=== PATIENT | male | born 1990 | race Caucasian/White ===

== ENCOUNTER 2016-11-09 19:20 | Emergency (ER) | payer OTHER ==
[~2016-11-09] VITALS: Ht 177.8 cm; Wt 90.9 kg
[2016-11-09 19:23] VITALS: BP 109/71; PULSE 72; RESP 16; O2SAT 99
[2016-11-09 22:29] LABS: BASOPHILS % (AUTO) 0.1 % (0-3); EOSINOPHILS % (AUTO) 2.1 % (0-5); MONOCYTES % (AUTO) 6.9 % (4-12); Mean Corpuscular Hemoglobin 29.8 pg (27.0-35.0); Mean Corpuscular Volume 84.6 fL (81-100); NEUTROPHILS % (AUTO) 55.9 % (40-74); Platelet Count 171 bil/L (150-400)
--- NOTE | 2016-11-09 22:29 | ED.REPORT ---
HPI-Extremity Problem Lower Date of Service Nov 09, 2016 ED Provider: Max Malave MD 25 y/o male with no pertinent hx presents to the ED complaining of right leg swelling, onset yesterday. The pt has been on a road trip for 9 days. He was sent here from urgent care to rule out DVT. The pt also states he was kickboxing a week ago and got kicked in the right beth, where he reports a bruise. He denies any numbness and tingling in the right leg or toes. Nursing Notes Stated Complaint: SWOLLEN FOOT Chief Complaint: Extremity Trauma Nursing Notes Reviewed: Yes Allergies: Coded Allergies: No Known Allergies (Unverified , 11/09/16) General Time Seen by MD: 21:49 Chief Complaint Other (right leg swelling) Hx Obtained From: Patient Arrived By: Walk-in Onset Occurred: 1 day ago Symptom Duration: Since onset Severity: Current: No pain currently Severity: Maximum: No pain Recent Healthcare: Recent doctor visit Similar Sx Previous: No Past Medical History Past Medical History none reported Past Surgical History Reports: Cholecystectomy Smoking History Unknown if Ever Smoker Social History Other Social History: Good social support Ambulatory Status Independent Review of Systems Denies: tingling in right leg and toes Musculoskeletal: Reports: Extremity swelling (right leg) Skin: Reports Bruising (right leg) Neurologic: Denies: Numbness (right leg) Complete sys rev & neg: except as marked. Physical Exam Initial Vital Signs Vital Signs (First) Date Time Temp Pulse Resp B/P Pulse Ox O2 Delivery O2 Flow Rate FiO2 11/09/16 19:23 37.0 72 16 109/71 99 Room Air Initial VS: Reviewed, Vital signs normal Head / Eyes: Atraumatic, Normocephalic, PERRL Neck: Supple, Non-tender, Full range of motion Respiratory: Breath sounds normal, Clear to auscultation, No respiratory distress Cardiovascular: Regular rate & rhythm, Heart sounds normal, Intact distal pulses Abdomen / GI: Soft, Non-tender Upper Extremities: Vascular intact, Neuro intact, No swelling, No tenderness Skin: Warm, Dry, No cyanosis Neurologic: Alert, Oriented, Nonfocal Lower Extremity / Pelvis / MS: Atraumatic, Inspection NL, Full range of motion , No deformity, Neurologic intact, Vascular intact Intact sensation in both legs Sun burn on dorsum of left leg, more than on the right leg Bruise on right beth. No evidence of compartment syndrome. Some swelling in both legs. Ankle / Foot: Atraumatic, Full range of motion, Non-tender, No deformity, Neurologic intact Right Ankle: Positive: Swelling present... (Moderate) General/Constitutional: Awake, Alert, No acute distress, Well appearing, Cooperative Interpretation & Diagnostics Exam: US Venous Duplex Result: No DVT Discussed with radiologist Lab Results Interpretation Result Diagram: 11/09/165 11/09/165 Test 11/09/16 22:15 White Blood Count 7.1th/mm3 (3.8-10.1) Red Blood Count 4.36mil/mm3 (4.40-5.80) Hemoglobin 13.0g/dL (13.8-17.2) Hematocrit 36.9% (41.0-50.0) Mean Corpuscular Volume 84.6fL (81-100) Mean Corpuscular Hemoglobin 29.8pg (27.0-35.0) Mean Corpuscular Hemoglobin Concent 35.2% (32.0-37.0) Red Cell Distribution Width 12.4% (12.3-15.4) Platelet Count 171bil/L (150-400) Neutrophils (%) (Auto) 55.9% (40-74) Lymphocytes (%) (Auto) 34.9% (14-46) Monocytes (%) (Auto) 6.9% (4-12) Eosinophils (%) (Auto) 2.1% (0-5) Basophils (%) (Auto) 0.1% (0-3) Prothrombin Time 10.4sec (8.1-12.5) Prothromb Time International Ratio 0.97ratio Activated Partial Thromboplast Time 25.5sec (22.8-33.0) Sodium Level 141mEq/L (134-144) Potassium Level 3.7mEq/L (3.5-5.2) Chloride Level 104mEq/L (97-108) Carbon Dioxide Level 22mmol/L (18-29) Blood Urea Nitrogen 12mg/dL (6-20) Creatinine 0.69mg/dL (0.76-1.27) Estimat Glomerular Filtration Rate 150mL/min (>59) Glucose Level 117mg/dL (60-99) Calcium Level 8.9mg/dL (8.5-10.1) Total Bilirubin 1.0mg/dL (0.0-1.2) Aspartate Amino Transf (AST/SGOT) 57U/L (0-50) Alanine Aminotransferase (ALT/SGPT) 32U/L (0-44) Alkaline Phosphatase 33U/L (25-150) Total Protein 6.5g/dL (6.4-8.4) Albumin 4.0g/dL (3.4-5.0) Re-Eval/Medical Decision Med Decision/Clinical Course 25-year-old presents with leg swelling and initially on the right. Now noted to be bilateral. He has been kickboxing with bruising contusion to his right leg. Other lesser injuries. Two on his left leg. Mild sunburn noted bilaterally. No ominous indications for further intervention. DVT is excluded by ultrasound. Suspect this is multifactorial including trauma, sunburn, prolonged seated posture. No indication for diuretics. All with instructions for elevation, supportive hose, and discharged now in stable condition. No indication of compartment syndrome. No indication of cardiovascular source. Re-Evaluation/Progress : Time of Eval: 22:50 Re-Evaluation/Progress Note: Rechecked pt. Discussed lab results, imaging results, diagnosis and plan to discharge. Pt understands and agrees with the plan. F/U instructions and RTER warning given. All questions addressed. Counseled Regarding: Diagnosis, Lab results, Need for follow-up, When/why to return to ED Discharge & Departure Impression: Primary Impression: Edema Edema type: unspecified Qualified Code: R60.9 - Edema, unspecified Additional Impression: Contusion of leg Encounter type: initial encounter Laterality: right Qualified Code: S80.11XA - Contusion of right lower leg, initial encounter Disposition: Home Discharge Condition All VS Reviewed: Yes Condition: Stable Patient Instructions: Contusion in Adults (ED), Leg Edema (ED) Additional Instructions: Elevate the legs whenever possible. Support of the legs with compressive stockings, such as soccer hose are similar , can be helpful in reducing the edema. Follow-up with your doctor in the office. Return if any immediate issues. There is no evidence of clotting or blood vessels. The remaining possibilities after clot has been eliminated, are basically self- limited and not dangerous. Referrals: [facility] Scribe Attestation Portions of this note were transcribed by William Wang. I, , personally performed the history, physical exam and medical decision- making;I reviewed and confirmed the accuracy of the information in the transcribed note. Signed by Verónica Vaughan. 11/09/16 23:10 copies to: [facility] Max Malave MD Nov 09, 2016 22:29 William Wang Nov 09, 2016 22:57
[2016-11-09 22:47] LABS: INR 0.97 ratio
[2016-11-09 22:52] VITALS: PULSE 72; RESP 16
--- NOTE | 2016-11-10 09:27 | DRSVH ---
PROCEDURE: US VEINOUS LEG DUPLEX UNILATERAL, RIGHT INDICATIONS: poss dvt TECHNIQUE: Real-time imaging, as well as color and pulse Doppler interrogation, were performed of the lower extr emity deep veins from the inguinal ligament to the popliteal fossa. COMPARISON: None. FINDINGS: The deep veins are normally compressible, and free of intraluminal thrombus. Color and pu lse Doppler demonstrate normal phasic intraluminal flow. There is normal augmentation response to di stal compression maneuver. Soft tissue swelling noted. IMPRESSION: No deep venous thrombosis in the right lower extremity. Dictated by: Janie Flores M.D. on 11/10/2016 at 9:25 Approved by: Janie Flores M.D. on 11/10/2016 at 9:25
== END 2016-11-09 22:57 | disposition home or self-care (01) ==
LOC: SED 19:20
DX: S80.11XA Contusion of right lower leg, initial encounter (principal); R60.9 Edema, unspecified; W50.1XXA Accidental kick by another person, initial encounter; Y93.59 Activity, other involving other sports and athletics played individually; Y92.9 Unspecified place or not applicable; Y99.8 Other external cause status